=== PATIENT | female | born 1960 | race Two or more races ===

== ENCOUNTER 2022-07-26 12:00 | Inpatient (IN) | payer OTHER ==
[~2022-07-26] VITALS: Ht 152.4 cm; Wt 44.9 kg
[2022-07-27] MEDS ORDERED: SYNTHROID100 MCG PO (15:01)
[2022-08-02] MEDS ORDERED: OFLOXACIN5 ML (08:16)
[2022-08-02] MEDS ORDERED: PRED FORTE5 ML (08:16)
== END 2022-09-23 12:03 | disposition home or self-care (01) | DRG 3 ==
LOC: O/R 07-30 06:25 → ICU 07-30 06:25 → SURG 07-30 12:00 → SURH 07-30 20:01 → ICU 08-02 20:40 → MEDJ 09-10 21:41
PROVIDERS: ADMIT Surgery; ATTEND Surgery
PROC: 0DBP4ZZ Excision of Rectum, Percutaneous Endoscopic Approach (ICD-10-PCS; 2022-07-30)
PROC: 07BC4ZZ Excision of Pelvis Lymphatic, Percutaneous Endoscopic Approach (ICD-10-PCS; 2022-07-30)
PROC: 0DJD8ZZ Inspection of Lower Intestinal Tract, Via Natural or Artificial Opening Endoscopic (ICD-10-PCS; 2022-07-30)
PROC: 0DTN4ZZ Resection of Sigmoid Colon, Percutaneous Endoscopic Approach (ICD-10-PCS; principal; 2022-07-30 18:00)
PROC: 5A1955Z Respiratory Ventilation, Greater than 96 Consecutive Hours (ICD-10-PCS; 2022-08-02)
PROC: 0BH17EZ Insertion of Endotracheal Airway into Trachea, Via Natural or Artificial Opening (ICD-10-PCS; 2022-08-02)
PROC: 0B110F4 Bypass Trachea to Cutaneous with Tracheostomy Device, Open Approach (ICD-10-PCS; 2022-08-19)
PROC: 0DH63UZ Insertion of Feeding Device into Stomach, Percutaneous Approach (ICD-10-PCS; 2022-08-19)
DX: C18.7 Malignant neoplasm of sigmoid colon (principal); J95.821 Acute postprocedural respiratory failure; E23.2 Diabetes insipidus; G93.49 Other encephalopathy; I97.121 Postprocedural cardiac arrest following other surgery; G93.1 Anoxic brain damage, not elsewhere classified; Z16.24 Resistance to multiple antibiotics; J95.851 Ventilator associated pneumonia; B96.89 Other specified bacterial agents as the cause of diseases classified elsewhere; G70.00 Myasthenia gravis without (acute) exacerbation; D64.9 Anemia, unspecified

== ENCOUNTER 2022-10-01 15:13 | Emergency (ER) | payer OTHER ==
[~2022-10-01] VITALS: Ht 170.2 cm; Wt 68.0 kg
[~2022-10-01 15:13] MED LIST: OFLOXACIN5 ML; PRED FORTE5 ML; SYNTHROID100 MCG PO
[2022-10-01] MEDS ORDERED: COZAAR25 MG PO (15:21)
== END 2022-10-01 18:50 | disposition home or self-care (01) ==
LOC: ER 15:13
DX: J95.03 Malfunction of tracheostomy stoma (principal)